=== PATIENT | male | born 1965 | race African-American/Black ===

== ENCOUNTER → 2016-05-18 | Outpatient (CLI) | payer MEDICARE, OTHER | LOC: RAD 13:36 | PROVIDERS: ATTEND Urology | DX: N20.0 Calculus of kidney (principal); I10 Essential (primary) hypertension; K58.9 Irritable bowel syndrome, unspecified; K59.00 Constipation, unspecified | CPT/HCPCS: 76380 ==

== ENCOUNTER → 2016-10-07 | Outpatient (CLI) | payer MEDICARE, OTHER ==
[2016-10-08 09:51] LABS: PROSTATE SPECIFIC ANTIGEN 2.3 ng/mL (0.0-4.0); PSA % FREE 14.8 % (.); PSA FREE 0.34 ng/mL
== END ==
LOC: OD 09:48
PROVIDERS: ATTEND Urology
DX: I10 Essential (primary) hypertension (principal); N20.0 Calculus of kidney; N45.1 Epididymitis
CPT/HCPCS: 36415; 84154; 84403

== ENCOUNTER → 2016-11-22 | Outpatient (CLI) | payer MEDICARE, OTHER ==
[2016-11-24 04:37] LABS: LUTEINIZING HORMONE 3.5 mIU/mL (1.7-8.6)
[2016-11-24 08:22] LABS: FOLLICLE STIMULATING HORMONE 2.4 mIU/mL (1.5-12.4)
== END ==
LOC: OD 16:13
PROVIDERS: ATTEND Urology
DX: K58.9 Irritable bowel syndrome, unspecified (principal); K59.00 Constipation, unspecified; M10.9 Gout, unspecified; I10 Essential (primary) hypertension; E29.1 Testicular hypofunction; N40.1 Benign prostatic hyperplasia with lower urinary tract symptoms
CPT/HCPCS: 36415; 83001; 83002

== ENCOUNTER → 2017-02-28 | Outpatient (CLI) | payer MEDICARE ==
--- NOTE | 2017-02-28 12:43 | RADIOLOGY REPORT (SQ) ---
EXAM DESCRIPTION: U/S RETROPERITON (RENAL/AORTA) COMPLETED DATE/TIME: 02/28/2017 9:46 am REASON FOR STUDY: R10.31RIGHT LOWER QUADRANT PAIN E29.1 TESTICULAR HYPOFUNCTION M54.5 LOW BACK JUNE N R10.31 RIGHT LOWER QUADRANT PAIN COMPARISON: None. TECHNIQUE: Dynamic and static grayscale images acquired of the kidneys and bladder and recorded on P ACS. Additional selected color Doppler and spectral images recorded. LIMITATIONS: None. FINDINGS: RIGHT KIDNEY: Normal size, 10.8 cm. Normal echogenicity. No solid or suspicious masses. No hydronephrosis. No calcifications. LEFT KIDNEY: Normal size, 12.9 cm. Normal echogenicity. No solid or suspicious masses. No hydronephr osis. No calcifications. BLADDER: No masses. Bilateral urinary jets were seen. OTHER FINDINGS: No other significant finding. IMPRESSION: NORMAL RENAL AND BLADDER ULTRASOUND. TECHNICAL DOCUMENTATION: JOB ID: [id number] [employer]- All Rights Reserved
[2017-03-01 06:39] LABS: LUTEINIZING HORMONE 5.3 mIU/mL (1.7-8.6)
[2017-03-01 11:06] LABS: FOLLICLE STIMULATING HORMONE 2.9 mIU/mL (1.5-12.4)
== END ==
LOC: RAD 08:36
PROVIDERS: ATTEND Urology
DX: K58.9 Irritable bowel syndrome, unspecified (principal); R10.31 Right lower quadrant pain; N52.8 Other male erectile dysfunction; K59.00 Constipation, unspecified
CPT/HCPCS: 36415; 76770; 83001; 83002; 84403

== ENCOUNTER 2018-02-03 13:23 | Emergency (ER) | payer MEDICARE, OTHER ==
--- NOTE | 2018-02-03 14:43 | RADIOLOGY REPORT (SQ) ---
EXAM DESCRIPTION: CT LTD RENAL STONE PROTOCOL ON COMPLETED DATE/TIME: 02/03/2018 2:19 pm REASON FOR STUDY: right flank pain COMPARISON: 05/18/2016 TECHNIQUE: CT scan of the abdomen and pelvis performed without intravenous or oral contrast. Images reviewed with lung, soft tissue, and bone windows. Reconstructed coronal and sagittal MPR images revi ewed. All images stored on PACS. All CT scanners at this facility use dose modulation, iterative reconstruction, and/or weight based d osing when appropriate to reduce radiation dose to as low as reasonably achievable (ALARA). [facility]: Dose Right [facility]: CareDose [facility]: Dose Right [facility]: Teradose 4D [facility]: [employer] RADIATION DOSE: CT Rad equipment meets quality standard of care and radiation dose reduction techniq ues were employed. CTDIvol: 18.9 mGy. DLP: 1040 mGy-cm.mGy. LIMITATIONS: None. FINDINGS: LOWER CHEST: No significant findings. No nodules or infiltrates. NON-CONTRASTED LIVER, SPLEEN, ADRENALS: Evaluation limited by lack of IV contrast. No identified sign ificant masses. PANCREAS: No masses. No peripancreatic inflammatory changes. GALLBLADDER: No identified stones by CT criteria. No inflammatory changes to suggest cholecystitis. RIGHT KIDNEY AND URETER: No suspicious masses. Assessment limited by lack of IV contrast. A single punctate nonobstructing calcification is seen within the collecting system. No hydronephrosis or hy droureter. LEFT KIDNEY AND URETER: No suspicious masses. Assessment limited by lack of IV contrast. No signifi cant calcifications. No hydronephrosis or hydroureter. AORTA AND RETROPERITONEUM: No aneurysm. No retroperitoneal masses or adenopathy. BOWEL AND PERITONEAL CAVITY: No obvious masses or inflammatory changes. No free fluid. APPENDIX: Normal. PELVIS, BLADDER, AND ABDOMINAL WALL:No abnormal masses. No free fluid. Bladder normal. BONES: Degenerative changes are seen of the hips and spine. No acute findings. OTHER: No other significant finding. IMPRESSION: No obstructive uropathy or evidence of intra-abdominal infectious/inflammatory process. COMMENT: Quality ID # [id number]: Final reports with documentation of one or more dose reduction techniques (e.g., Automated exposure control, adjustment of the mA and/or kV according to patient size, use of iterative reconstruction technique) TECHNICAL DOCUMENTATION: JOB ID: [id number] [employer]- All Rights Reserved Reading location - IP/workstation name: [email or web address]
[2018-02-03 14:46] LABS: ABSOLUTE EOSINOPHILS # (AUTO) 0.2 10^3/uL (0.0-0.6); ABSOLUTE LYMPHOCYTES (AUTO) 2.4 10^3/uL (0.5-4.7); ABSOLUTE MONOCYTES (AUTO) 0.5 10^3/uL (0.1-1.4); BASOPHILS % (AUTO) 0.7 % (0-2); EOSINOPHILS % (AUTO) 3.3 % (0-6); HEMATOCRIT 43.8 % (37.9-51.0); LYMPHOCYTES % (AUTO) 33.2 % (13-45); MEAN CORPUSCULAR HEMOGLOBIN 23.9 pg (27.0-33.4); MEAN CORPUSCULAR VOLUME 75 fl (80-97); MONOCYTES % (AUTO) 7.4 % (3-13); PLATELET COUNT 216 10^3/uL (150-450); RED BLOOD COUNT 5.86 10^6/uL (4.35-5.55); SEGMENTED NEUTROPHILS % (AUTO) 55.4 % (42-78); TOTAL CELLS COUNTED % (AUTO) 100 %; WHITE BLOOD COUNT 7.2 10^3/uL (4.0-10.5)
[2018-02-03 14:49] LABS: APPEARANCE,URINE CLEAR; BILIRUBIN,URINE NEGATIVE (NEGATIVE); COLOR,URINE YELLOW; GLUCOSE, URINE NEGATIVE (NEGATIVE); KETONES,URINE NEGATIVE (NEGATIVE); LEUKOCYTE ESTERASE,URINE NEGATIVE (NEGATIVE); NITRITE,URINE NEGATIVE (NEGATIVE); PROTEIN,URINE NEGATIVE (NEGATIVE); URINE SPECIFIC GRAVITY 1.012; UROBILINOGEN,URINE NEGATIVE mg/dL (<2.0)
[2018-02-03 14:52] LABS: ANION GAP 10 (5-19); BLOOD UREA NITROGEN 11 mg/dL (7-20); CALCIUM 9.6 mg/dL (8.4-10.2); CARBON DIOXIDE 31 mmol/L (22-30); CHLORIDE 99 mmol/L (98-107); GLUCOSE 121 mg/dL (75-110); POTASSIUM 4.1 mmol/L (3.6-5.0); SODIUM 140.3 mmol/L (137-145)
--- NOTE | 2018-02-03 15:39 | ER Document Report ---
ED General - General Chief Complaint: Flank Pain Stated Complaint: FLANK PAIN Time Seen by Provider: 02/03/18 13:52 TRAVEL OUTSIDE OF THE [place] IN LAST 30 DAYS: No - HPI Patient complains to provider of: Right flank pain Notes: Patient coming in for right flank pain. Patient states has history of kidney stones however this pain has been different ongoing for the last few weeks worse today patient was seen in urgent care told he did have blood in his urine however run able to perform the imaging to see if there is actual kidney stone therefore patient was came to the ER for further evaluation. Patient denies any fever chills nausea vomiting diarrhea dysuria. Patient resting comfortably upon my evaluation. - Related Data Allergies/Adverse Reactions: No Known Allergies Allergy (Unverified 02/03/18 13:24) Past Medical History - Social History Smoking Status: Never Smoker Chew tobacco use (# tins/day): No Frequency of alcohol use: None Drug Abuse: None Family History: Reviewed & Not Pertinent Patient has suicidal ideation: No Patient has homicidal ideation: No - Past Medical History Cardiac Medical History: Reports: Hx Hypertension Renal/ Medical History: Denies: Hx Peritoneal Dialysis Past Surgical History: Reports: Hx Orthopedic Surgery - knee, achilles Review of Systems - Review of Systems Constitutional: No symptoms reported EENT: No symptoms reported Cardiovascular: No symptoms reported Respiratory: No symptoms reported Gastrointestinal: No symptoms reported Genitourinary: Flank pain Male Genitourinary: No symptoms reported Musculoskeletal: No symptoms reported Skin: No symptoms reported Hematologic/Lymphatic: No symptoms reported Neurological/Psychological: No symptoms reported -: Yes All other systems reviewed and negative Physical Exam - Vital signs Vitals: Temp Pulse Resp BP Pulse Ox 98.5 F 68 18 119/66 98 02/03/18 13:47 02/03/18 13:47 02/03/18 13:47 02/03/18 13:47 02/03/18 13:47 Interpretation: Normal - General General appearance: Appears well, Alert - HEENT Head: Normocephalic, Atraumatic Eyes: Normal Pupils: PERRL - Respiratory Respiratory status: No respiratory distress Chest status: Nontender Breath sounds: Normal Chest palpation: Normal - Cardiovascular Rhythm: Regular Heart sounds: Normal auscultation Murmur: No - Abdominal Inspection: Normal Distension: No distension Bowel sounds: Normal Tenderness: Nontender Organomegaly: No organomegaly - Back Back: Normal, Nontender - Extremities General upper extremity: Normal inspection, Nontender, Normal color, Normal ROM , Normal temperature General lower extremity: Normal inspection, Nontender, Normal color, Normal ROM , Normal temperature, Normal weight bearing. No: Gerson's sign - Neurological Neuro grossly intact: Yes Cognition: Normal Orientation: AAOx4 Xander Coma Scale Eye Opening: Spontaneous Xander Coma Scale Verbal: Oriented Xander Coma Scale Motor: Obeys Commands Xander Coma Scale Total: 15 Speech: Normal Motor strength normal: LUE, RUE, LLE, RLE Sensory: Normal - Psychological Associated symptoms: Normal affect, Normal mood - Skin Skin Temperature: Warm Skin Moisture: Dry Skin Color: Normal Course - Re-evaluation Re-evalutation: 02/03/18 20:26 CT scan not show any obstructive uropathy did show a small kidney stone in the renal pelvis possibly causing patient's pain otherwise with patient's history of hematuria may be a passed kidney stone. Patient was given pain control recommend follow-up with primary care physician for further evaluation. Patient states understanding discharged - Vital Signs Vital signs: Temp Pulse Resp BP Pulse Ox 97.6 F 66 20 126/74 H 99 02/03/18 15:45 02/03/18 15:45 02/03/18 15:45 02/03/18 15:45 02/03/18 15:45 - Laboratory Result Diagrams: 02/03/18 14:30 02/03/18 14:30 Laboratory results interpreted by me: 02/03/18 02/03/18 02/03/18 14:30 14:30 14:30 RBC 5.86 H MCV 75 L MCH 23.9 L RDW 16.0 H Carbon Dioxide 31 H Glucose 121 H Urine Ascorbic Acid 40 H Discharge - Discharge Clinical Impression: Flank pain, Nephrolithiasis Condition: Good Disposition: HOME, SELF-CARE Instructions: Flank Pain ([facility]) Additional Instructions: CAT scan today shows signs of a kidney stone within the kidney however no signs of kidney stones within the ureter. Kidney stones within the ureter cause pain as well as a stone stated within the kidney patient would not experience any pain from the stones. There is no blood in your urine at this time. With your history of blood in your urinalysis from the urgent care you may have passed a stone. You may still be experiencing ureteral spasm from passage of a stone which would explain your pain. We will give you medication to help out with the pain called Ultram. He may also take Tylenol and Motrin return to ER symptoms worsen Prescriptions: Ibuprofen [Motrin 600 mg Tablet] 600 mg PO Q8HP PRN #21 tablet PRN Reason: Ondansetron [Zofran Odt] 4 mg PO Q6 PRN #30 tab.rapdis PRN Reason: For Nausea/Vomiting Tramadol HCl [Ultram 50 mg Tablet] 50 mg PO ASDIR PRN #20 tablet PRN Reason: Forms: Return to Work Referrals: JO AVENDANO MD [NO LOCAL MD] - Follow up as needed
[2018-02-03 15:59] VITALS: BP 126/74
== END 2018-02-03 15:47 | disposition home or self-care (01) ==
LOC: ER 13:23
DX: N20.0 Calculus of kidney (principal); R10.9 Unspecified abdominal pain; I10 Essential (primary) hypertension; Z87.442 Personal history of urinary calculi
CPT/HCPCS: 36415; 76380; 80048; 81001; 85025; 99284